=== PATIENT | female | born 1995 | race Two or more races ===

== ENCOUNTER 2025-05-06 04:57 | Emergency (ER) | payer SELFPAY ==
[~2025-05-06] VITALS: Ht 156.2 cm; Wt 70.9 kg
[2025-05-06] MEDS: ONDANSETRON HCL 4 MG/2 ML VIAL IVP ONE (05:07)
[2025-05-06] MEDS: SODIUM CHLORIDE 0.9% 1,000 ML IV ONE ×3 (05:07→08:40)
[2025-05-06 05:23] LABS: PLATELET COUNT (AUTO) 351 K/uL (150-450); RED BLOOD CELL COUNT(AUTO) 4.56 MIL/uL (4.00-5.20); RED CELL DISTRIBUTION WIDTH 12.4 % (11.5-14.5); WHITE BLOOD COUNT (AUTO) 14.4 K/uL (4.5-11.0)
[2025-05-06 05:33] LABS: CALCIUM, TOTAL 8.7 mg/dL (8.8-10.5); CREATININE 0.82 mg/dL (0.60-1.30); GLOMERULAR FILTR. RATE CALC > 60 mL/min (>60); GLUCOSE,RANDOM 150 mg/dL (70-110); SODIUM SERUM 137 mmol/L (136-145); UREA NITROGEN, BLOOD 10 mg/dL (7-18)
[2025-05-06 05:35] LABS: ALCOHOL, BLOOD (SERUM) 230 mg/dL (0-10)
[2025-05-06 05:46] LABS: HCG,QUANTITATIVE < 1 mIU/mL (0-6)
[2025-05-06] MEDS: NALOXONE HCL 1 MG/ML 2 ML SYRINGE IVP ONE (05:48)
[2025-05-06 06:29] LABS: APPEARANCE,URINE CLEAR (CLEAR); GLUCOSE, URINE (UA) NEGATIVE (NEGATIVE); LEUKOCYTE ESTERASE ,URINE TRACE (NEGATIVE); NITRATE,URINE NEGATIVE (NEGATIVE); OCCULT BLOOD,URINE NEGATIVE (NEGATIVE); PH,URINE DRUG SCREEN 5.5 (5.0-8.0); SPECIFIC GRAVITIY, URINE 1.005 (1.003-1.030)
[2025-05-06 06:36] LABS: ALCOHOL, URINE DRUG SCREEN POSITIVE (NEGATIVE); AMPHET/METH SCREEN,URINE NEGATIVE (NEGATIVE); BARBITURATE SCREEN, URINE NEGATIVE (NEGATIVE); CANNABINOID SCREEN,URINE POSITIVE (NEGATIVE); COCAINE SCREEN,URINE NEGATIVE (NEGATIVE); METHADONE SCREEN, URINE NEGATIVE (NEGATIVE)
[2025-05-06 06:40] LABS: SQUAMOUS EPITHELIAL CELL,UR Moderate /LPF (None Seen)
[2025-05-06] MEDS: THIAMINE 100 MG/ML 2 ML VIAL IVP ONE (08:02)
[2025-05-06] MEDS: METOCLOPRAMIDE HCL 10 MG TABLET PO ONE (10:09)
[2025-05-06] MEDS: POTASSIUM CHLORIDE 20 MEQ ER TABLET PO ONE (10:09)
[2025-05-06] MEDS: KETOROLAC TROMETHAMINE 30 MG/ML VIAL IVP ONE (10:10)
[2025-05-06 10:16] VITALS: BP 115/75; PULSE 79; RESP 12; O2SAT 99
== END 2025-05-06 10:31 | disposition home or self-care (01) ==
LOC: EMS 04:57
DX: F10.129 Alcohol abuse with intoxication, unspecified (principal); N89.8 Other specified noninflammatory disorders of vagina; Z88.0 Allergy status to penicillin; Y90.7 Blood alcohol level of 200-239 mg/100 ml
CPT/HCPCS: 99284; 96374; 96375; 96361; 80048; 81001; 84702; 85025; 36415; 80307; J1885; G0480; J1200; J3411; J7030